=== PATIENT | female | born 1990 | race American Indian/Alaskan Native ===

== ENCOUNTER 2020-08-02 18:11 | Emergency (ER) | payer OTHER ==
[2020-08-02] MEDS ORDERED: IBUPROFEN 600 MG TAB PO ONE (21:56)
[2020-08-02] MEDS ORDERED: ACETAMINOPHEN 500 MG TAB PO ONE (21:57)
[2020-08-02 22:07] VITALS: BP 144/94
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
== END 2020-08-02 22:30 | disposition home or self-care (01) ==
LOC: ED 18:11
DX: M62.838 Other muscle spasm (principal); M54.2 Cervicalgia; Z79.899 Other long term (current) drug therapy
CPT/HCPCS: 72125; 99283